=== PATIENT | female | born 1975 ===

== ENCOUNTER 2016-10-06 20:27 | Emergency (ER) | payer SELFPAY ==
[2016-10-06 20:27] VITALS: BMI 39.1
[2016-10-06 20:34] VITALS: RESP 16
[2016-10-06 20:53] VITALS: BP 152/81; PULSE 74; TEMP 97.9; O2SAT 100
--- NOTE | 2016-10-06 21:20 | ED PDOC ---
HPI: Chest Pain Time Seen by Provider: 10/06/16 21:04 Chief Complaint (Nursing): Chest Pain Chief Complaint (Provider): Chest Pain History Per: Patient History/Exam Limitations: no limitations Onset/Duration Of Symptoms: Hrs (12x) Current Symptoms Are (Timing): Still Present Severity: Moderate Quality: Sharp (left side) Exacerbating Factors: Other (worsens with inspiration) Additional Complaint(s): 41 year old female with a pertinent medical history of fibroid uterus presents to the ED with complaints of left sided chest pain which radiates to her back that started today 12x hours prior to arrival to the ED. She reports that it worsens with inspiration. She denies having a cough, shortness of breath, nausea and vomiting. PMD: Saritha Pal MD Past Medical History Reviewed: Historical Data, Nursing Documentation, Vital Signs Vital Signs: Last Vital Signs Temp 97.9 F 10/06/16 20:31 Pulse 74 10/06/16 20:31 Resp 16 10/06/16 20:31 BP 152/81 H 10/06/16 20:31 Pulse Ox 100 10/06/16 21:35 - Medical History PMH: Anemia, HTN - Surgical History Surgical History: - Family History Family History: States: Unknown Family Hx - Social History Alcohol: None Drugs: Denies - Immunization History Hx Tetanus Toxoid Vaccination: No Hx Influenza Vaccination: No Hx Pneumococcal Vaccination: No - Home Medications Home Medications: Ambulatory Orders Medication Instructions Recorded Naproxen [Naprosyn] 500 mg PO Q12H #20 tab 10/06/16 hydroCHLOROthiazide [Microzide] 1 tab PO DAILY 10/06/16 - Allergies Allergies/Adverse Reactions: Allergies Allergy/AdvReac Type Severity Reaction Status Date / Time Penicillins Allergy RASH Verified 06/14/16 15:06 Review of Systems ROS Statement: Except As Marked, All Systems Reviewed And Found Negative Cardiovascular: Positive for: Chest Pain (sharp, left side, radiates to her back ) Respiratory: Negative for: Cough, Shortness of Breath Gastrointestinal: Negative for: Nausea, Vomiting Musculoskeletal: Positive for: Back Pain Physical Exam - Reviewed Nursing Documentation Reviewed: Yes Vital Signs Reviewed: Yes - Physical Exam Appears: Positive for: Well, Non-toxic, No Acute Distress Head Exam: Positive for: ATRAUMATIC, NORMOCEPHALIC Skin: Positive for: Normal Color, Warm, Dry Cardiovascular/Chest: Positive for: Regular Rate, Rhythm, Chest Non Tender Respiratory: Positive for: Normal Breath Sounds. Negative for: Respiratory Distress Gastrointestinal/Abdominal: Positive for: Normal Exam, Soft. Negative for: Tenderness Extremity: Positive for: Normal ROM. Negative for: Calf Tenderness, Swelling Neurologic/Psych: Positive for: Alert, Oriented (3x) - Laboratory Results Result Diagrams: 10/06/16 21:45 10/06/16 21:45 - ECG O2 Sat by Pulse Oximetry: 100 (RA) Pulse Ox Interpretation: Normal Medical Decision Making Medical Decision Makin:04 Initial impression: left sided sharp chest pain Initial plan: * XRay chest 2 views * EKG * CBC with differential * CMP * troponin I * udip * reevaluation Scribe Attestation: Documented by Magaly Alonso, acting as a scribe for Carlos Rossi MD. Provider Scribe Attestation: All medical record entries made by the Scribe were at my direction and personally dictated by me. I have reviewed the chart and agree that the record accurately reflects my personal performance of the history, physical exam, medical decision making, and the department course for this patient. I have also personally directed, reviewed, and agree with the discharge instructions and disposition. Disposition - Clinical Impression Clinical Impression: Chest pain, Back pain, Pleuritic chest pain - Patient ED Disposition Is Patient to be Admitted: No Counseled Patient/Family Regarding: Studies Performed, Diagnosis, Need For Followup, Rx Given - Disposition Disposition: Routine/Home Disposition Time: 22:41 Condition: FAIR Prescriptions: Naproxen [Naprosyn] 500 mg PO Q12H #20 tab Instructions: Chest Pain (DC), Pleurisy (ED) Print Language: TELUGU
[2016-10-06 21:50] LABS: BASO # 0.3 K/uL (0.0-0.2); EOS # 0.9 K/uL (0.0-0.7); EOS % 6.4 % (0.0-4.0); HEMATOCRIT 37.2 % (34.0-47.0); LYMPH # 3.2 K/uL (1.0-4.3); LYMPH % 23.8 % (20.0-40.0); MEAN CORPUSCULAR HEMOGLOBIN 29.2 pg (27.0-31.0); MEAN PLATELET VOLUME 9.4 fl (7.2-11.7); MONO # 0.8 K/uL (0.0-0.8); MONO % 6.1 % (0.0-10.0); NEUT # 8.3 K/uL (1.8-7.0); NEUT % 61.7 % (50.0-75.0); NRBC % 0.1 % (0.0-0.0); RED CELL DISTRIBUTION WIDTH 13.9 % (11.5-14.5); WHITE BLOOD COUNT 13.4 K/uL (4.8-10.8)
[2016-10-06 22:01] LABS: ALKALINE PHOSPHATASE 89 U/L (38-126); ALT/SGPT 33 U/L (9-52); AST/SGOT 42 U/L (14-36); BILIRUBIN,TOTAL 0.7 mg/dl (0.2-1.3); BLOOD UREA NITROGEN 18 mg/dl (7-17); CALCIUM 8.9 mg/dL (8.4-10.2); CARBON DIOXIDE 27 mmol/L (22-30); CHLORIDE 102 mmol/L (98-107); GFR AFRICAN-AMERICAN > 60; GLUCOSE,RANDOM 101 mg/dL (65-105); SODIUM 137 mmol/l (132-148); TOTAL PROTEIN 8.5 G/DL (6.3-8.2)
[2016-10-06] MEDS ORDERED: Naproxen 500 MG TAB PO ONE (22:39)
[2016-10-06] MEDS ORDERED: Naproxen 500 MG TAB PO STA (22:42)
--- NOTE | 2016-10-07 08:27 | RAD ---
HISTORY: chest pain COMPARISON: No prior. TECHNIQUE: Chest PA and lateral FINDINGS: LUNGS: No active pulmonary disease. PLEURA: No significant pleural effusion identified. No pneumothorax apparent. CARDIOVASCULAR: Normal. OSSEOUS STRUCTURES: No significant abnormalities. VISUALIZED UPPER ABDOMEN: Normal. OTHER FINDINGS: None. IMPRESSION: No focal infiltrate or CHF. Clear lungs.
--- NOTE | 2016-10-08 09:42 | CARD ---
APPROVED REPORT EKG Measurement Heart [id number] <Conclusion> Normal sinus rhythm Normal ECG
== END 2016-10-07 00:04 | disposition home or self-care (01) ==
LOC: H.ER 20:27
DX: R07.81 Pleurodynia (principal); M54.9 Dorsalgia, unspecified; Z88.0 Allergy status to penicillin; I10 Essential (primary) hypertension

== ENCOUNTER 2017-11-05 01:38 | Emergency (ER) | payer SELFPAY ==
[2017-11-05 01:38] VITALS: BMI 39.1
[2017-11-05 01:59] VITALS: BP 178/94; PULSE 76; RESP 18; TEMP 98.7; O2SAT 100
--- NOTE | 2017-11-05 02:21 | ED PDOC ---
HPI: Abdomen Time Seen by Provider: 11/05/17 01:58 Chief Complaint (Nursing): Abdominal Pain Chief Complaint (Provider): abdominal Pain History Per: Patient History/Exam Limitations: no limitations Onset/Duration Of Symptoms: Hrs (2) Current Symptoms Are (Timing): Still Present Location Of Pain/Discomfort: RUQ Additional Complaint(s): 42 yo female with a history of hypertension, presents to the ED complaining of acute right upper quadrant abdominal pain that radiates to the mid back, onset of 2 hours ago. Patient reports of nausea and 4 episodes of intermittent pain, but denies any vomiting. Of note, patient states that she usually takes chamomile tea, which helps, but didn't help today. Past Medical History Reviewed: Historical Data, Nursing Documentation, Vital Signs Vital Signs: Last Vital Signs Temp 98.7 F 11/05/17 01:56 Pulse 76 11/05/17 01:56 Resp 18 11/05/17 01:56 BP 178/94 H 11/05/17 01:56 Pulse Ox 100 11/05/17 02:27 - Medical History PMH: Anemia, HTN - Surgical History Surgical History: - Family History Family History: States: Unknown Family Hx - Social History Current smoker - smoking cessation education provided: No Alcohol: None Drugs: Denies - Immunization History Hx Tetanus Toxoid Vaccination: No Hx Influenza Vaccination: No Hx Pneumococcal Vaccination: No - Home Medications Home Medications: Ambulatory Orders Medication Instructions Recorded Naproxen [Naprosyn] 500 mg PO Q12H #20 tab 10/06/16 hydroCHLOROthiazide [Microzide] 1 tab PO DAILY 10/06/16 Dicyclomine [Bentyl] 20 mg PO Q12 PRN #20 tab 11/05/17 Famotidine [Pepcid] 20 mg PO Q12 #14 tab 11/05/17 Ondansetron ODT [Zofran ODT] 12 mg PO Q6 PRN #16 odt 11/05/17 - Allergies Allergies/Adverse Reactions: Allergies Allergy/AdvReac Type Severity Reaction Status Date / Time Penicillins Allergy RASH Verified 06/14/16 15:06 Review of Systems ROS Statement: Except As Marked, All Systems Reviewed And Found Negative Constitutional: Negative for: Fever Gastrointestinal: Positive for: Nausea, Abdominal Pain (ruq pain that radiates to the bakc). Negative for: Vomiting Physical Exam - Reviewed Nursing Documentation Reviewed: Yes Vital Signs Reviewed: Yes - Physical Exam Appears: Positive for: Well, Non-toxic, No Acute Distress Head Exam: Positive for: ATRAUMATIC, NORMAL INSPECTION, NORMOCEPHALIC Skin: Positive for: Normal Color, Warm, DRY Eye Exam: Positive for: EOMI, Normal appearance, PERRL ENT: Positive for: Normal ENT Inspection Neck: Positive for: Normal, Painless ROM Cardiovascular/Chest: Positive for: Regular Rate, Rhythm. Negative for: Murmur Respiratory: Positive for: Normal Breath Sounds. Negative for: Respiratory Distress Gastrointestinal/Abdominal: Positive for: Soft, Tenderness (RUQ; Martinez's sign present) Back: Positive for: Normal Inspection Extremity: Positive for: Normal ROM. Negative for: Pedal Edema, Deformity Neurologic/Psych: Positive for: Alert, Oriented. Negative for: Motor/Sensory Deficits - Laboratory Results Result Diagrams: 11/05/17 03:04 11/05/17 03:04 - ECG O2 Sat by Pulse Oximetry: 100 (RA) Pulse Ox Interpretation: Normal Medical Decision Making Medical Decision Making: Time: --02:03 Impression: --42 yo female with acute biliary colic Plan: --labs --lipase --ed urine dip --urine preg --pepcid 20 mg IV --toradol 30mg IV --4mg IV --heplock insertion --urinalysis --ABD limited US Reassess --03:27 EXAM: US Abdomen Limited, Right Upper Quadrant CLINICAL HISTORY: 42 years old, female; Pain; Abdominal pain; Generalized; Additional info: Ruq pain TECHNIQUE: Real-time ultrasound of the right upper quadrant with image documentation. COMPARISON: No relevant prior studies available. FINDINGS: Liver: Fatty infiltration. No mass. No intrahepatic ductal dilatation. Gallbladder: Distended. Gallstones. No wall thickening. No pericholecystic fluid. No sonographic Martinez's sign. Common bile duct: No dilatation. No stones. Pancreas: Obscured by overlying bowel gas. Right kidney: Normal echogenicity. No hydronephrosis. IMPRESSION: 1. Gallbladder distention with cholelithiasis. 2. Incidental/non-acute findings are described above. Thank you for allowing us to participate in the care of your patient. 03:42 patient reports improvements of symptoms. labs reviewed and reveal no clinically significant abnormalities. patient is stable for discharge home. diagnosis: Cholelithiais Dr. perez has made arrangements for patient to follow up with the clinic for rapid follow up. Scribe Attestation: Documented by John Stone acting as a scribe for Leo Spring MD. Provider Attestation: All medical record entries made by the Scribe were at my direction and personally dictated by me. I have reviewed the chart and agree that the record accurately reflects my personal performance of the history, physical exam, medical decision making, and the department course for this patient. I have also personally directed, reviewed, and agree with the discharge instructions and disposition. Disposition - Clinical Impression Clinical Impression: Cholelithiasis - Patient ED Disposition Is Patient to be Admitted: No - Disposition Referrals: [facility] [Outside] Disposition Time: 03:42 Condition: STABLE Prescriptions: Dicyclomine [Bentyl] 20 mg PO Q12 PRN #20 tab PRN Reason: abdominal pain Famotidine [Pepcid] 20 mg PO Q12 #14 tab Ondansetron ODT [Zofran ODT] 12 mg PO Q6 PRN #16 odt PRN Reason: Nausea/Vomiting Instructions: Gallstones Forms: [facility] (Sami) Print Language: ARABIC
[2017-11-05 03:20] LABS: BASO # 0.2 K/uL (0.0-0.2); BASO % 1.4 % (0.0-2.0); EOS # 0.6 K/uL (0.0-0.7); EOS % 5.6 % (0.0-4.0); LYMPH # 2.2 K/uL (1.0-4.3); LYMPH % 19.8 % (20.0-40.0); MEAN CELL VOLUME 85.8 fl (81.0-99.0); MEAN CORPUSCULAR HEMOGLOBIN 28.6 pg (27.0-31.0); MEAN CORPUSCULAR HGB CONC 33.3 g/dL (33.0-37.0); MEAN PLATELET VOLUME 9.2 fl (7.2-11.7); MONO # 0.9 K/uL (0.0-0.8); MONO % 7.8 % (0.0-10.0); NEUT # 7.4 K/uL (1.8-7.0); NEUT % 65.4 % (50.0-75.0); NRBC % 0.1 % (0.0-0.0); RBC 4.18 Mil/uL (3.80-5.20); RED CELL DISTRIBUTION WIDTH 13.7 % (11.5-14.5); WHITE BLOOD COUNT 11.3 K/uL (4.8-10.8)
[2017-11-05 03:27] LABS: ALB/GLOB RATIO 1.1 (1.0-2.1); ALBUMIN 3.9 g/dL (3.5-5.0); ALT/SGPT 36 U/L (9-52); AST/SGOT 20 U/L (14-36); BLOOD UREA NITROGEN 12 mg/dl (7-17); GFR AFRICAN-AMERICAN > 60; GFR NON-AFRICAN AMERICAN > 60; LIPASE 67 U/L (23-300)
--- NOTE | 2017-11-05 03:27 | US ---
EXAM: US Abdomen Limited, Right Upper Quadrant CLINICAL HISTORY: 42 years old, female; Pain; Abdominal pain; Generalized; Additional info: Ruq pain TECHNIQUE: Real-time ultrasound of the right upper quadrant with image documentation. COMPARISON: No relevant prior studies available. FINDINGS: Liver: Fatty infiltration. No mass. No intrahepatic ductal dilatation. Gallbladder: Distended. Gallstones. No wall thickening. No pericholecystic fluid. No sonographic Martinez's sign. Common bile duct: No dilatation. No stones. Pancreas: Obscured by overlying bowel gas. Right kidney: Normal echogenicity. No hydronephrosis. IMPRESSION: 1. Gallbladder distention with cholelithiasis. 2. Incidental/non-acute findings are described above.
[2017-11-05 03:31] LABS: SQUAMOUS EPITHIAL < 1 /hpf (0-5); URINE BACTERIA FEW (<OCC); URINE BILIRUBIN NEGATIVE (NEGATIVE); URINE BLOOD SMALL (NEGATIVE); URINE CLARITY CLEAR (Clear); URINE COLOR COLORLESS (YELLOW); URINE GLUCOSE (UA) NEG (Normal); URINE LEUKOCYTE ESTERASE NEG Leu/uL (Negative); URINE PROTEIN NEGATIVE (NEGATIVE); URINE UROBILINOGEN 0.2-1.0 mg/dL (0.2-1.0)
== END 2017-11-05 04:04 | disposition home or self-care (01) ==
LOC: H.ER 01:38
DX: K80.70 Calculus of gallbladder and bile duct without cholecystitis without obstruction (principal); I10 Essential (primary) hypertension; Z88.0 Allergy status to penicillin
CPT/HCPCS: 76705; 80053; 81003; 83690; 85025; 96374; 96375; 99283; J1885; J2405

== ENCOUNTER 2017-11-13 19:02 | Inpatient (IN) | payer SELFPAY ==
[2017-11-13 19:02] VITALS: BMI 39.1
[2017-11-13] MEDS ORDERED: Sodium Chloride 0.9% 1,000 ML IV STA (20:00)
--- NOTE | 2017-11-13 20:03 | ED PDOC ---
HPI: Abdomen Time Seen by Provider: 11/13/17 19:50 Chief Complaint (Nursing): Abdominal Pain Chief Complaint (Provider): Abdominal pain History Per: Patient, Family History/Exam Limitations: no limitations Onset/Duration Of Symptoms: Days (1) Additional Complaint(s): Pt reports abdominal pain X 1 day, associated with nausea and 2 episodes of nonbloody vomiting. Denies fever, constipation, diarrhea, urinary symptoms. Pt evaluated in ED on 11/05/17 and dx with cholelithiasis. Abnormal Vaginal Bleeding: No Past Medical History Reviewed: Nursing Documentation, Vital Signs Vital Signs: Last Vital Signs Temp 97.8 F 11/13/17 19:35 Pulse 61 11/13/17 19:35 Resp 20 11/13/17 19:35 BP 157/83 H 11/13/17 19:35 Pulse Ox 100 11/13/17 22:30 - Medical History PMH: Anemia, HTN - Surgical History Surgical History: - Family History Family History: States: Unknown Family Hx - Social History Current smoker - smoking cessation education provided: No Alcohol: None - Immunization History Hx Tetanus Toxoid Vaccination: No Hx Influenza Vaccination: No Hx Pneumococcal Vaccination: No - Home Medications Home Medications: Ambulatory Orders Medication Instructions Recorded Naproxen [Naprosyn] 500 mg PO Q12H #20 tab 10/06/16 hydroCHLOROthiazide [Microzide] 1 tab PO DAILY 10/06/16 Dicyclomine [Bentyl] 20 mg PO Q12 PRN #20 tab 11/05/17 Famotidine [Pepcid] 20 mg PO Q12 #14 tab 11/05/17 Ondansetron ODT [Zofran ODT] 12 mg PO Q6 PRN #16 odt 11/05/17 - Allergies Allergies/Adverse Reactions: Allergies Allergy/AdvReac Type Severity Reaction Status Date / Time Penicillins Allergy RASH Verified 06/14/16 15:06 Review of Systems Constitutional: Negative for: Fever, Chills Cardiovascular: Negative for: Chest Pain, Palpitations Respiratory: Negative for: Cough, Shortness of Breath Gastrointestinal: Positive for: Nausea, Vomiting, Abdominal Pain. Negative for : Diarrhea, Hematochezia, Hematemesis Genitourinary Female: Negative for: Dysuria, Hematuria Musculoskeletal: Negative for: Back Pain Skin: Negative for: Rash, Lesions Neurological: Negative for: Headache, Dizziness Physical Exam - Reviewed Nursing Documentation Reviewed: Yes Vital Signs Reviewed: Yes - Physical Exam Appears: Positive for: Well, No Acute Distress Skin: Positive for: Normal Color, Warm, Dry Eye Exam: Positive for: Normal appearance, EOMI, PERRL Cardiovascular/Chest: Positive for: Regular Rate, Rhythm Respiratory: Positive for: Normal Breath Sounds Gastrointestinal/Abdominal: Positive for: Bowel Sounds, Soft, Tenderness (RUQ), Guarding (+ Martinez's sign). Negative for: Distended, Rebound Back: Positive for: Normal Inspection. Negative for: L CVA Tenderness, R CVA Tenderness Neurologic/Psych: Positive for: Alert, Oriented - Laboratory Results Result Diagrams: 11/13/17 20:51 11/13/17 20:51 - ECG O2 Sat by Pulse Oximetry: 100 Pulse Ox Interpretation: Normal - Physician Consult Information Time Consulting Physican Contacted: 22:30 Physician Contacted: Ramsey Carrington Outcome Of Conversation: NPO, Abx, admit. Medical Decision Making Medical Decision Makin yo female with RUQ pain. - labs - EKG - RUQ ultrasound - Morphine - IVF - Zofran 2211 Abdomen US FINDINGS: Gallbladder: Contains multiple small gallstones, which were reportedly mobile on real time. Tiny amount of pericholecystic fluid. Mild gallbladder wall thickening, with the wall measuring 5 mm (normal less than 3 mm). Reportedly positive sonographic Martinez's sign. Common bile duct: Does not appear abnormally dilated, measuring less than 6 mm in diameter. Liver: Demonstrates diffusely increased parenchymal echogenicity, most compatible with fatty infiltration. Otherwise unremarkable in appearance. Normal in size, measuring 15.6 cm in length. Normal flow seen in the main portal vein on color and Doppler imaging. Pancreas: Imaged portions appear unremarkable. Tail is obscured by bowel gas. Right kidney: Measures 10.4 cm in length. No evidence of hydronephrosis. IMPRESSION: FINDINGS SUSPICIOUS FOR EARLY ACUTE CHOLECYSTITIS. Gallstones, associated with a tiny amount of pericholecystic fluid, mild gallbladder wall thickening, and a positive sonographic Martinez's sign. Recommend clinical correlation. See above for remaining findings. Dictated By: Reshma Clark MD Dictated Date/Time: 11/13/172211 Signed By: Reshma Clark MD Date Signed: 2211 Transcribed By: BALAJI Transcribe Date/Time : 11/13/172211 [id number] Disposition - Clinical Impression Clinical Impression: Acute cholecystitis - Patient ED Disposition Is Patient to be Admitted: Yes - Disposition Disposition Time: 22:36 Condition: STABLE Forms: [facility] (Martiniquais) - Pt Status Changed To: Hospital Disposition Of: Inpatient - Admit Certification Admit to Inpatient:: After my assessment, the patient will require hospitalization for at least two midnights. This is because of the severity of symptoms shown, intensity of services needed, and/or the medical risk in this patient being treated as an outpatient. - POA Present On Arrival: None
[2017-11-13 20:57] LABS: BASO # 0.1 K/uL (0.0-0.2); BASO % 0.7 % (0.0-2.0); EOS # 0.1 K/uL (0.0-0.7); EOS % 0.9 % (0.0-4.0); HEMOGLOBIN 11.2 g/dL (12.0-16.0); LYMPH # 0.8 K/uL (1.0-4.3); LYMPH % 6.3 % (20.0-40.0); MEAN CELL VOLUME 86.5 fl (81.0-99.0); MEAN CORPUSCULAR HEMOGLOBIN 28.7 pg (27.0-31.0); MEAN CORPUSCULAR HGB CONC 33.2 g/dL (33.0-37.0); MEAN PLATELET VOLUME 9.3 fl (7.2-11.7); MONO # 0.5 K/uL (0.0-0.8); MONO % 4.2 % (0.0-10.0); NEUT # 10.4 K/uL (1.8-7.0); NEUT % 87.9 % (50.0-75.0); PLATELET COUNT 292 K/uL (130-400); RBC 3.88 Mil/uL (3.80-5.20); RED CELL DISTRIBUTION WIDTH 13.7 % (11.5-14.5); WHITE BLOOD COUNT 11.9 K/uL (4.8-10.8)
[2017-11-13 21:12] LABS: INR 1.1 (0.9-1.2)
[2017-11-13 21:14] LABS: URINE BACTERIA RARE (<OCC); URINE BILIRUBIN NEGATIVE (NEGATIVE); URINE BLOOD LARGE (NEGATIVE); URINE CLARITY CLOUDY (Clear); URINE COLOR YELLOW (YELLOW); URINE GLUCOSE (UA) NEG (Normal); URINE LEUKOCYTE ESTERASE NEG Leu/uL (Negative); URINE PROTEIN 30 mg/dL (NEGATIVE); URINE UROBILINOGEN 0.2-1.0 mg/dL (0.2-1.0)
[2017-11-13 21:34] LABS: ALBUMIN 3.9 g/dL (3.5-5.0); ALT/SGPT 186 U/L (9-52); AST/SGOT 144 U/L (14-36); BLOOD UREA NITROGEN 8 mg/dl (7-17); CALCIUM 8.8 mg/dL (8.4-10.2); GFR AFRICAN-AMERICAN > 60; GFR NON-AFRICAN AMERICAN > 60; LIPASE 51 U/L (23-300)
--- NOTE | 2017-11-13 22:12 | US ---
EXAM: US Abdomen Limited, Right Upper Quadrant EXAM DATE/TIME: 11/13/2017 8:00 PM CLINICAL HISTORY: 42 years old, female; Pain; Abdominal pain; Epigastric; Additional info: Ruq pain TECHNIQUE: Real-time ultrasound of the right upper quadrant with image documentation. COMPARISON: Prior right upper quadrant ultrasound of 2017-11-05 02:20 FINDINGS: Gallbladder: Contains multiple small gallstones, which were reportedly mobile on real time. Tiny amount of pericholecystic fluid. Mild gallbladder wall thickening, with the wall measuring 5 mm (normal less than 3 mm). Reportedly positive sonographic Martinez's sign. Common bile duct: Does not appear abnormally dilated, measuring less than 6 mm in diameter. Liver: Demonstrates diffusely increased parenchymal echogenicity, most compatible with fatty infiltration. Otherwise unremarkable in appearance. Normal in size, measuring 15.6 cm in length. Normal flow seen in the main portal vein on color and Doppler imaging. Pancreas: Imaged portions appear unremarkable. Tail is obscured by bowel gas. Right kidney: Measures 10.4 cm in length. No evidence of hydronephrosis. IMPRESSION: FINDINGS SUSPICIOUS FOR EARLY ACUTE CHOLECYSTITIS. Gallstones, associated with a tiny amount of pericholecystic fluid, mild gallbladder wall thickening, and a positive sonographic Martinez's sign. Recommend clinical correlation. See above for remaining findings.
[2017-11-13 22:32] LABS: BANDS 3 % (0-2); BASOPHIL 1 % (0-2); LYMPHOCYTE 7 % (20-50); MONOCYTE 2 % (0-10); NEUTROPHIL 87 % (42-75); PLATELET ESTIMATE NORMAL (NORMAL); TOTAL CELLS COUNTED 100
[2017-11-13 22:33] LABS: ANISOCYTOSIS SLIGHT; HYPOCHROMIC SLIGHT; OVALOCYTES SLIGHT; POIKILOCYTOSIS SLIGHT; TARGET CELLS SLIGHT
[2017-11-13] MEDS ORDERED: levoFLOXacin 750 mg in D5W 750 MG/150 ML BAG IVPB STA ×2 (22:34→23:10)
[2017-11-13] MEDS ORDERED: levoFLOXacin 750 mg in D5W 150 ML BAG IVPB STA (22:55)
[2017-11-13] MEDS ORDERED: levoFLOXacin 750 mg in D5W 750 MG/150 ML BAG IVPB ONE (23:09)
[2017-11-13] MEDS ORDERED: HYDROmorphone 0.5 mg/0.5 ml ISec IVP PRN (23:30)
--- NOTE | 2017-11-14 | CP.PCM.HP ---
History of Present Illness - History of Present Illness History of Present Illness: 42 yo ,f, PMhx/o HTN, Asthma, Obesity, Cholelithiasis presents to ED c/o RUQ abdominal pain started today in the afternoon 4 pm, no postprandial, intermittent, burning, 10/10 intensity , radiated to the back, associated with 2 non- bloddy vomiting. She denies fever, chest pain, SOB, diarrhea, dysuria. Reports menses now. Reports had similar symptoms 8 days ago, evaluated in Ed and had appt for our clinic 11/22/17. On evaluation patient reports pain has subsided with medications, hemodynamically stable. PMD: [facility]. Dr Reynoso last visit 09/26/17 PMHx: HTN, Asthma, Obesity, Cholelithiasis Allergies: Penicillin .rash reaction Meds: Lisinopril 20 mg , albuterol prn PSurghx: C section x1 OBhx: LMP: 11/11/17. Current on menses PFHx: Mother HTN PShx: +ETOH social, denies rect drugs, cig ED Course VS: normal except BP: 157/83 PE: RUQ TD, Martinez + Labs: CBC: 11.9>11.2<292 CMP: AST/ALT 144/186 Imaging: Abd US: Gallbladder: Contains multiple small gallstones, which were reportedly mobile on real time. Tiny amount of pericholecystic fluid. Mild gallbladder wall thickening, with the wall measuring 5 mm (normal less than 3 mm). Reportedly positive sonographic Martinez's sign. FINDINGS SUSPICIOUS FOR EARLY ACUTE CHOLECYSTITIS. EKG: NSR.HR:66 CXR: pending to be done Meds: NS 1l, zofran, morphine 2mg iv, levaquin 750 mg IV Case discussed with Dr Carrington: recommends patient NPO, Abx Present on Admission - Present on Admission Any Indicators Present on Admission: No History of DVT/PE: No History of Uncontrolled Diabetes: No Urinary Catheter: No Decubitus Ulcer Present: No Review of Systems - Review of Systems All systems: reviewed and no additional remarkable complaints except - Cardiovascular Cardiovascular: As Per HPI - Respiratory Respiratory: As Per HPI - Gastrointestinal Gastrointestinal: Abdominal Pain, Nausea, Vomiting Past Patient History - Past Social History Alcohol: None - CARDIAC Hx Cardiac Disorders: Yes (HTN) - PULMONARY Hx Asthma: Yes - HEMATOLOGICAL/ONCOLOGICAL Hx Anemia: Yes - MUSCULOSKELETAL/RHEUMATOLOGICAL Hx Back Pain: Yes - PSYCHIATRIC Hx Substance Use: No - SURGICAL HISTORY Hx Section: Yes (x1) - ANESTHESIA Hx Anesthesia: Yes Hx Anesthesia Reactions: No Meds Allergies/Adverse Reactions: Allergies Allergy/AdvReac Type Severity Reaction Status Date / Time Penicillins Allergy RASH Verified 06/14/16 15:06 Physical Exam - Constitutional Appears: Non-toxic, No Acute Distress - Head Exam Head Exam: ATRAUMATIC, NORMOCEPHALIC - Eye Exam Eye Exam: Normal appearance - ENT Exam ENT Exam: Normal Exam - Neck Exam Neck exam: Positive for: Normal Inspection - Respiratory Exam Respiratory Exam: absent: Rales, Rhonchi, Wheezes - Cardiovascular Exam Cardiovascular Exam: REGULAR RHYTHM, +S1, +S2 - GI/Abdominal Exam GI & Abdominal Exam: Normal Bowel Sounds, Rebound, Soft, Tenderness. absent: Guarding Additional comments: RUQ tenderness. + Martinez - Extremities Exam Extremities exam: Positive for: normal capillary refill, normal inspection. Negative for: pedal edema - Neurological Exam Neurological exam: Alert, Oriented x3 - Psychiatric Exam Psychiatric exam: Normal Affect, Normal Mood - Skin Skin Exam: Intact Results - Vital Signs Recent Vital Signs: Last Vital Signs Temp 98.3 F 11/14/17 00:00 Pulse 72 11/14/17 00:00 Resp 17 11/14/17 00:00 BP 139/89 11/14/17 00:00 Pulse Ox 100 11/14/17 00:00 - Labs Result Diagrams: 11/13/17 20:51 11/13/17 20:51 Labs: Laboratory Results - last 24 hr 11/13/17 11/13/17 11/13/17 20:47 20:51 20:51 WBC 11.9 H RBC 3.88 Hgb 11.2 L Hct 33.6 L MCV 86.5 MCH 28.7 MCHC 33.2 RDW 13.7 Plt Count 292 MPV 9.3 Neut % (Auto) 87.9 H Lymph % (Auto) 6.3 L [place] % (Auto) 4.2 Eos % (Auto) 0.9 Baso % (Auto) 0.7 Neut # (Auto) 10.4 H Lymph # (Auto) 0.8 L [place] # (Auto) 0.5 Eos # (Auto) 0.1 Baso # (Auto) 0.1 Neutrophils % (Manual) 87 H Band Neutrophils % 3 H Lymphocytes % (Manual) 7 L Monocytes % (Manual) 2 Basophils % (Manual) 1 Platelet Estimate Normal Hypochromasia (manual) Slight Poikilocytosis (manual Slight Anisocytosis (manual) Slight Target Cells Slight Ovalocytes Slight PT INR APTT Sodium 141 Potassium 3.6 Chloride 101 Carbon Dioxide 28 Anion Gap 16 BUN 8 Creatinine 0.5 L Est GFR ( Amer) > 60 Est GFR (Non-Af Amer) > 60 Random Glucose 130 H Calcium 8.8 Total Bilirubin 0.9 AST 144 H D ALT 186 H D Alkaline Phosphatase 105 Total Protein 7.6 Albumin 3.9 Globulin 3.7 Albumin/Globulin Ratio 1.0 Lipase 51 Urine Color Yellow Urine Clarity Cloudy Urine pH 6.0 Ur Specific [place] 1.014 Urine Protein 30 Urine Glucose (UA) Neg Urine Ketones Negative Urine Blood Large Urine Nitrate Negative Urine Bilirubin Negative Urine Urobilinogen 0.2-1.0 Ur Leukocyte Esterase Neg Urine RBC (Auto) 1826 H Urine Microscopic WBC 1 Urine Bacteria Rare 11/13/17 20:51 WBC RBC Hgb Hct MCV MCH MCHC RDW Plt Count MPV Neut % (Auto) Lymph % (Auto) [place] % (Auto) Eos % (Auto) Baso % (Auto) Neut # (Auto) Lymph # (Auto) [place] # (Auto) Eos # (Auto) Baso # (Auto) Neutrophils % (Manual) Band Neutrophils % Lymphocytes % (Manual) Monocytes % (Manual) Basophils % (Manual) Platelet Estimate Hypochromasia (manual) Poikilocytosis (manual Anisocytosis (manual) Target Cells Ovalocytes PT 12.0 INR 1.1 APTT 29.0 Sodium Potassium Chloride Carbon Dioxide Anion Gap BUN Creatinine Est GFR ( Amer) Est GFR (Non-Af Amer) Random Glucose Calcium Total Bilirubin AST ALT Alkaline Phosphatase Total Protein Albumin Globulin Albumin/Globulin Ratio Lipase Urine Color Urine Clarity Urine pH Ur Specific [place] Urine Protein Urine Glucose (UA) Urine Ketones Urine Blood Urine Nitrate Urine Bilirubin Urine Urobilinogen Ur Leukocyte Esterase Urine RBC (Auto) Urine Microscopic WBC Urine Bacteria Assessment & Plan - Assessment and Plan (Free Text) Plan: 42 yo ,f, PMhx/o HTN, Asthma, Obesity, Cholelithiasis admitted for Acute cholecystitis 1) Acute cholecystitis -martinez positive Abd US: Gallbladder: Contains multiple small gallstones, which were reportedly mobile on real time. Tiny amount of pericholecystic fluid. Mild gallbladder wall thickening, with the wall measuring 5 mm (normal less than 3 mm). Reportedly positive sonographic Martinez's sign. FINDINGS SUSPICIOUS FOR EARLY ACUTE CHOLECYSTITIS. -reactive transaminitis, lipase normal -NPO -s/p fluids, morphine, abx ED -IV fluids NS 130 ml/h -pain control morphine PRN -zofran PRN nausea/vomiting -Levaquin 750 mg IV qday -D/w Surgery Dr Carrington: Keep patient NPO and Abx Levofloxacin -f/u CBC, CMP 2) Transaminitis -reactive secondary to Acute cholecystitis -AST/ALT 144/186 -f/u CMP 3) HTN -controlled -c/w home meds -Lisinopril 4) Asthma -Controlled -c/w home medication 5) DVT Prophylaxis -SCD. Possible surgery
[2017-11-14] MEDS: Sodium Chloride 0.9% 1,000 ML IV SCH ×3 (01:02→23:45)
--- NOTE | 2017-11-14 01:58 | CP.PCM.CON ---
<Sam Randle - Last Filed: 11/14/17 02:16> History of Present Illness - History of Present Illness History of Present Illness: Surgery Consult note. Dr. Carrington 42yo F with PMHx of HTN, Anemia here for evaluation of RUQ abdominal pain. She states that the pain started at around 4PM yesterday. Denies any association with food intake. Pain is located in the right upper quadrant and epigastric location, radiates to the right mid back. Describes pain as sharp. Does report similar pain 8 days ago when she was diagnosed with cholelithiasis and scheduled for out-patient follow-up. She states that she was given a prescription for dicyclomine with moderate improvement in pain. However, today, the pain returned and described as severe. Denies Fevers or chills. No Chest pain. No shortness of breath. Does report nausea with 2 episodes of non bilious , non bloody emesis. No diarrhea. Denies sick contacts. Denies current . PMHx: HTN, Anemia, L ovarian cyst PSHx: x1. Uterine Fibroid removal Family Hx: Mother - HTN Social Hx: Denies tobacco use. Social ETOH use. Denies illicit drugs Allergy: PCN - rash Review of Systems - Constitutional Constitutional: absent: Chills, Fever - Cardiovascular Cardiovascular: absent: Chest Pain, Diaphoresis, Dyspnea - Respiratory Respiratory: absent: Dyspnea - Gastrointestinal Gastrointestinal: Abdominal Pain, Nausea, Vomiting. absent: Diarrhea, Hematemesis, Hematochezia, Melena - Genitourinary Genitourinary: absent: Difficulty Urinating, Dysuria Past Patient History - Past Medical History & Family History Past Medical History?: Yes Past Family History: Reviewed and not pertinent - Past Social History Smoking Status: Never Smoked Alcohol: Social Drugs: Denies - CARDIAC Hx Cardiac Disorders: Yes (HTN) - PULMONARY Hx Asthma: Yes - HEMATOLOGICAL/ONCOLOGICAL Hx Anemia: Yes - MUSCULOSKELETAL/RHEUMATOLOGICAL Hx Back Pain: Yes - PSYCHIATRIC Hx Substance Use: No - SURGICAL HISTORY Hx Section: Yes (x1) - ANESTHESIA Hx Anesthesia: Yes Hx Anesthesia Reactions: No Meds Allergies/Adverse Reactions: Allergies Allergy/AdvReac Type Severity Reaction Status Date / Time Penicillins Allergy RASH Verified 06/14/16 15:06 - Medications Medications: Current Medications Acetaminophen (Tylenol 325mg Tab) 650 mg PO Q6 PRN PRN Reason: Fever >100.4 F Hydromorphone HCl (Dilaudid) 0.5 mg IVP Q6 PRN PRN Reason: Pain, severe (8-10) Levofloxacin/Dextrose (Levaquin 750mg) 750 mg in 150 mls @ 100 mls/hr IVPB DAILY@2330 CHICA PRN Reason: Protocol Sodium Chloride (Sodium Chloride 0.9%) 1,000 mls @ 130 mls/hr IV .Q7H42M [facility] Stop: 11/15/17 00:39 Last Admin: 11/14/17 01:02 Dose: 130 mls/hr Lisinopril (Zestril) 20 mg PO DAILY [facility] [place] Morphine Sulfate (Morphine) 2 mg IVP Q4 PRN PRN Reason: Pain, moderate (4-7) Ondansetron HCl (Zofran Inj) 4 mg IVP Q6 PRN PRN Reason: Nausea/Vomiting Physical Exam - Constitutional Appears: Well, Non-toxic, No Acute Distress - Head Exam Head Exam: ATRAUMATIC, NORMAL INSPECTION, NORMOCEPHALIC - Eye Exam Eye Exam: EOMI, Normal appearance. absent: Scleral icterus - ENT Exam ENT Exam: Mucous Membranes Moist - Respiratory Exam Respiratory Exam: NORMAL BREATHING PATTERN. absent: Accessory Muscle Use, Respiratory Distress - Cardiovascular Exam Cardiovascular Exam: RRR. absent: JVD - GI/Abdominal Exam GI & Abdominal Exam: Soft. absent: Distended, Firm, Guarding, Rebound, Rigid Additional comments: Tenderness to palpation right upper quadrant +Martinez's sign Low transverse surgical scar noted, well healed - Extremities Exam Extremities exam: Positive for: normal inspection. Negative for: calf tenderness - Neurological Exam Neurological exam: Alert, Normal Gait, Oriented x3 - Psychiatric Exam Psychiatric exam: Normal Affect, Normal Mood - Skin Skin Exam: Dry, Intact, Normal Color, Warm Results - Vital Signs Recent Vital Signs: Last Vital Signs Temp 98.3 F 11/14/17 00:00 Pulse 72 11/14/17 00:00 Resp 17 11/14/17 00:00 BP 139/89 11/14/17 00:00 Pulse Ox 100 11/14/17 00:00 - Labs Result Diagrams: 11/13/17 20:51 11/13/17 20:51 Labs: Laboratory Results - last 24 hr 11/13/17 11/13/1718 20:47 20:51 20:51 WBC 11.9 H RBC 3.88 Hgb 11.2 L Hct 33.6 L MCV 86.5 MCH 28.7 MCHC 33.2 RDW 13.7 Plt Count 292 MPV 9.3 Neut % (Auto) 87.9 H Lymph % (Auto) 6.3 L [place] % (Auto) 4.2 Eos % (Auto) 0.9 Baso % (Auto) 0.7 Neut # (Auto) 10.4 H Lymph # (Auto) 0.8 L [place] # (Auto) 0.5 Eos # (Auto) 0.1 Baso # (Auto) 0.1 Neutrophils % (Manual) 87 H Band Neutrophils % 3 H Lymphocytes % (Manual) 7 L Monocytes % (Manual) 2 Basophils % (Manual) 1 Platelet Estimate Normal Hypochromasia (manual) Slight Poikilocytosis (manual Slight Anisocytosis (manual) Slight Target Cells Slight Ovalocytes Slight PT INR APTT Sodium 141 Potassium 3.6 Chloride 101 Carbon Dioxide 28 Anion Gap 16 BUN 8 Creatinine 0.5 L Est GFR ( Amer) > 60 Est GFR (Non-Af Amer) > 60 Random Glucose 130 H Calcium 8.8 Total Bilirubin 0.9 AST 144 H D ALT 186 H D Alkaline Phosphatase 105 Total Protein 7.6 Albumin 3.9 Globulin 3.7 Albumin/Globulin Ratio 1.0 Lipase 51 Urine Color Yellow Urine Clarity Cloudy Urine pH 6.0 Ur Specific [place] 1.014 Urine Protein 30 Urine Glucose (UA) Neg Urine Ketones Negative Urine Blood Large Urine Nitrate Negative Urine Bilirubin Negative Urine Urobilinogen 0.2-1.0 Ur Leukocyte Esterase Neg Urine RBC (Auto) 1826 H Urine Microscopic WBC 1 Urine Bacteria Rare 11/13/17 20:51 WBC RBC Hgb Hct MCV MCH MCHC RDW Plt Count MPV Neut % (Auto) Lymph % (Auto) [place] % (Auto) Eos % (Auto) Baso % (Auto) Neut # (Auto) Lymph # (Auto) [place] # (Auto) Eos # (Auto) Baso # (Auto) Neutrophils % (Manual) Band Neutrophils % Lymphocytes % (Manual) Monocytes % (Manual) Basophils % (Manual) Platelet Estimate Hypochromasia (manual) Poikilocytosis (manual Anisocytosis (manual) Target Cells Ovalocytes PT 12.0 INR 1.1 APTT 29.0 Sodium Potassium Chloride Carbon Dioxide Anion Gap BUN Creatinine Est GFR ( Amer) Est GFR (Non-Af Amer) Random Glucose Calcium Total Bilirubin AST ALT Alkaline Phosphatase Total Protein Albumin Globulin Albumin/Globulin Ratio Lipase Urine Color Urine Clarity Urine pH Ur Specific [place] Urine Protein Urine Glucose (UA) Urine Ketones Urine Blood Urine Nitrate Urine Bilirubin Urine Urobilinogen Ur Leukocyte Esterase Urine RBC (Auto) Urine Microscopic WBC Urine Bacteria Assessment & Plan - Assessment and Plan (Free Text) Assessment: 42yo F with acute calculous cholecystitis - Abd US noted - Leukocytosis. Afebrile. VSS Plan: - NPO except meds - IVF - IV levofloxacin - Anti-emetics - pain management - MRCP to r/o choledocholithiasis - f/u AM labs - Will schedule for OR following the results of MRCP Further recs as per Dr. Zeb Randle PGY1 surgery pager: [phone] <Jozef Yanes - Last Filed: 11/14/17 10:17> History of Present Illness - History of Present Illness History of Present Illness: Patient was seen and examined at the bedside. Agree with resident's note above. Meds - Medications Medications: Current Medications Acetaminophen (Tylenol 325mg Tab) 650 mg PO Q6 PRN PRN Reason: Fever >100.4 F Hydromorphone HCl (Dilaudid) 0.5 mg IVP Q6 PRN PRN Reason: Pain, severe (8-10) Levofloxacin/Dextrose (Levaquin 750mg) 750 mg in 150 mls @ 100 mls/hr IVPB DAILY@2330 CHICA PRN Reason: Protocol Sodium Chloride (Sodium Chloride 0.9%) 1,000 mls @ 130 mls/hr IV .Q7H42M [facility] Stop: 11/15/17 00:39 Last Admin: 11/14/17 01:02 Dose: 130 mls/hr Potassium Chloride (Potassium Chloride 20 Meq/100 Ml) 100 mls @ 50 mls/hr IVPB ONCE ONE Stop: 11/14/17 11:42 Lisinopril (Zestril) 20 mg PO DAILY [facility] [place] Morphine Sulfate (Morphine) 2 mg IVP Q4 PRN PRN Reason: Pain, moderate (4-7) Ondansetron HCl (Zofran Inj) 4 mg IVP Q6 PRN PRN Reason: Nausea/Vomiting Physical Exam - GI/Abdominal Exam Additional comments: soft, mildly tender in the RUQ, ND, BS+, no rebound, no guarding, negative Martinez's sign, obese, well healed scar from prior Results - Vital Signs Recent Vital Signs: Last Vital Signs Temp 98.1 F 11/14/17 08:02 Pulse 55 L 11/14/17 08:02 Resp 20 11/14/17 08:02 BP 137/83 11/14/17 08:02 Pulse Ox 100 11/14/17 08:02 - Labs Result Diagrams: 11/14/17 05:25 11/14/17 05:25 Labs: Laboratory Results - last 24 hr 11/13/17 11/13/17 11/13/17 20:47 20:51 20:51 WBC 11.9 H RBC 3.88 Hgb 11.2 L Hct 33.6 L MCV 86.5 MCH 28.7 MCHC 33.2 RDW 13.7 Plt Count 292 MPV 9.3 Neut % (Auto) 87.9 H Lymph % (Auto) 6.3 L [place] % (Auto) 4.2 Eos % (Auto) 0.9 Baso % (Auto) 0.7 Neut # (Auto) 10.4 H Lymph # (Auto) 0.8 L [place] # (Auto) 0.5 Eos # (Auto) 0.1 Baso # (Auto) 0.1 Neutrophils % (Manual) 87 H Band Neutrophils % 3 H Lymphocytes % (Manual) 7 L Monocytes % (Manual) 2 Basophils % (Manual) 1 Platelet Estimate Normal Hypochromasia (manual) Slight Poikilocytosis (manual Slight Anisocytosis (manual) Slight Target Cells Slight Ovalocytes Slight PT INR APTT Sodium 141 Potassium 3.6 Chloride 101 Carbon Dioxide 28 Anion Gap 16 BUN 8 Creatinine 0.5 L Est GFR ( Amer) > 60 Est GFR (Non-Af Amer) > 60 Random Glucose 130 H Calcium 8.8 Total Bilirubin 0.9 AST 144 H D ALT 186 H D Alkaline Phosphatase 105 Total Protein 7.6 Albumin 3.9 Globulin 3.7 Albumin/Globulin Ratio 1.0 Lipase 51 Urine Color Yellow Urine Clarity Cloudy Urine pH 6.0 Ur Specific [place] 1.014 Urine Protein 30 Urine Glucose (UA) Neg Urine Ketones Negative Urine Blood Large Urine Nitrate Negative Urine Bilirubin Negative Urine Urobilinogen 0.2-1.0 Ur Leukocyte Esterase Neg Urine RBC (Auto) 1826 H Urine Microscopic WBC 1 Urine Bacteria Rare 11/13/17 11/14/17 11/14/17 20:51 05:25 05:25 WBC 11.0 H RBC 3.70 L Hgb 10.7 L Hct 31.7 L MCV 85.6 MCH 28.9 MCHC 33.8 RDW 13.7 Plt Count 286 MPV 9.5 Neut % (Auto) 72.8 Lymph % (Auto) 18.8 L [place] % (Auto) 6.1 Eos % (Auto) 1.2 Baso % (Auto) 1.1 Neut # (Auto) 8.0 H Lymph # (Auto) 2.1 [place] # (Auto) 0.7 Eos # (Auto) 0.1 Baso # (Auto) 0.1 Neutrophils % (Manual) Band Neutrophils % Lymphocytes % (Manual) Monocytes % (Manual) Basophils % (Manual) Platelet Estimate Hypochromasia (manual) Poikilocytosis (manual Anisocytosis (manual) Target Cells Ovalocytes PT 12.0 INR 1.1 APTT 29.0 Sodium 142 Potassium 3.4 L Chloride 105 Carbon Dioxide 23 Anion Gap 17 BUN 7 Creatinine 0.5 L Est GFR ( Amer) > 60 Est GFR (Non-Af Amer) > 60 Random Glucose 101 Calcium 8.5 Total Bilirubin 0.8 AST 140 H ALT 224 H D Alkaline Phosphatase 97 Total Protein 7.0 Albumin 3.6 Globulin 3.4 Albumin/Globulin Ratio 1.0 Lipase Urine Color Urine Clarity Urine pH Ur Specific [place] Urine Protein Urine Glucose (UA) Urine Ketones Urine Blood Urine Nitrate Urine Bilirubin Urine Urobilinogen Ur Leukocyte Esterase Urine RBC (Auto) Urine Microscopic WBC Urine Bacteria - Imaging and Cardiology US - abdomen Status: Image reviewed by me, Report reviewed by me
[2017-11-14] MEDS ORDERED: metroNIDAZOLE 500mg/100ml NS IVPB SCH (02:15)
[2017-11-14] MEDS ORDERED: metroNIDAZOLE 500mg/100ml NS 100 ML IVPB SCH (02:30)
[2017-11-14 06:48] LABS: BASO # 0.1 K/uL (0.0-0.2); BASO % 1.1 % (0.0-2.0); EOS # 0.1 K/uL (0.0-0.7); EOS % 1.2 % (0.0-4.0); HEMOGLOBIN 10.7 g/dL (12.0-16.0); LYMPH # 2.1 K/uL (1.0-4.3); LYMPH % 18.8 % (20.0-40.0); MEAN CELL VOLUME 85.6 fl (81.0-99.0); MEAN CORPUSCULAR HEMOGLOBIN 28.9 pg (27.0-31.0); MEAN CORPUSCULAR HGB CONC 33.8 g/dL (33.0-37.0); MEAN PLATELET VOLUME 9.5 fl (7.2-11.7); MONO # 0.7 K/uL (0.0-0.8); MONO % 6.1 % (0.0-10.0); NEUT % 72.8 % (50.0-75.0); NRBC % 0.1 % (0.0-0.0); RBC 3.7 Mil/uL (3.80-5.20); RED CELL DISTRIBUTION WIDTH 13.7 % (11.5-14.5)
[2017-11-14 07:39] LABS: ALBUMIN 3.6 g/dL (3.5-5.0); ALT/SGPT 224 U/L (9-52); AST/SGOT 140 U/L (14-36); BLOOD UREA NITROGEN 7 mg/dl (7-17); CALCIUM 8.5 mg/dL (8.4-10.2); GFR AFRICAN-AMERICAN > 60; GFR NON-AFRICAN AMERICAN > 60
[2017-11-14] MEDS ORDERED: Gadodiamide 287 MG/ML VIAL (15ML) IV ONE (08:22)
[2017-11-14] MEDS ORDERED: Sodium Chloride 0.9% 100 ML ONE (08:22)
[2017-11-14] MEDS ORDERED: levoFLOXacin 750 mg in D5W 750 MG/150 ML BAG IVPB SCH ×2 (09:00→23:30)
[2017-11-14] MEDS ORDERED: Potassium Chloride 20 mEq 100 ML IVPB ONE (09:43)
--- NOTE | 2017-11-14 09:53 | CARD ---
APPROVED REPORT EKG Measurement Heart [id number] <Conclusion> Normal sinus rhythm Normal ECG
--- NOTE | 2017-11-14 09:58 | RAD ---
HISTORY: RUQ abd pain COMPARISON: 10/06/2016 TECHNIQUE: Chest PA and lateral FINDINGS: LUNGS: No active pulmonary disease. PLEURA: No significant pleural effusion identified. No pneumothorax apparent. CARDIOVASCULAR: Normal. OSSEOUS STRUCTURES: Mild thoracic spondylosis VISUALIZED UPPER ABDOMEN: Normal. OTHER FINDINGS: None. IMPRESSION: No active disease.
--- NOTE | 2017-11-14 11:44 | MRI ---
PROCEDURE: Magnetic Resonance Cholangiopancreatography HISTORY: COMPARISON: Abdominal limited ultrasound. 11/13/2017 TECHNIQUE: Multiplanar, multisequence MR images of the abdomen were obtained, including heavily T2 weighted MRCP images of the biliary system. Rotating maximum intensity projection images of the biliary system were generated. FINDINGS: MRCP: The common bile duct is of a normal caliber. No evidence of choledocholithiasis. No intrahepatic biliary ductal dilatation. LIVER: Unremarkable. GALLBLADDER: Multiple gallstones. Gallbladder wall thickening and a fairly significant amount of pericholecystic fluid present SPLEEN: Unremarkable. PANCREAS: Unremarkable. ADRENALS: Unremarkable. KIDNEYS: Unremarkable. AORTA: No aneurysm. ASCITES: None. OTHER FINDINGS: None. IMPRESSION: No dilated intra or extrahepatic bile ducts. No appreciable filling defects within the visualized normal caliber common bile duct to suggest stones. Minute sandlike debris -not excluded. Gallstones, gallbladder wall thickening and pericholecystic fluid - -findings compatible with an acute calculus cholecystitis
[2017-11-14] MEDS ORDERED: Dexamethasone 4 mg/1 ml ONE (13:13)
[2017-11-14] MEDS ORDERED: Propofol 10 mg/ml Inj (20 ML) ONE (13:13)
[2017-11-14] MEDS ORDERED: Midazolam 2 MG/2 ML VIAL ONE (13:13)
[2017-11-14] MEDS ORDERED: Lidocaine 4% (Laryng-O-Jet) Kit MM ONE (13:13)
[2017-11-14] MEDS ORDERED: Bupivacaine 0.5% Inj(30mL) ONE (13:36)
[2017-11-14] MEDS ORDERED: Lidocaine 2% Inj (20ml) ONE (13:36)
[2017-11-14] MEDS ORDERED: Neostigmine 1:1000 (1 mg/ml) Inj ONE (13:54)
[2017-11-14] MEDS ORDERED: Succinylcholine 200 mg/10 ml Inj IV ONE (13:54)
[2017-11-14] MEDS ORDERED: Rocuronium 10 mg/ml (5 ml) ONE (13:55)
[2017-11-14] MEDS ORDERED: Lactated Ringer's 1,000 ML IV ONE ×2 (14:12→15:00)
[2017-11-14] MEDS ORDERED: Lactated Ringer's 1,000 ML IV SCH ×2 (15:15)
--- NOTE | 2017-11-14 15:42 | PCM.SURG1 ---
Surgeon's Initial Post Op Note - Surgeon's Notes Surgeon: MD Farzana [employer] Machine Mechanic: Nasreen PGY2. FRED RobertY1. Pre-Operative Diagnosis: Acute cholecystitis Operative Findings: inflammed gallbladder Post-Operative Diagnosis: Acute cholecystitis Operation Performed: Laparoscopic cholecystectomy Specimen/Specimens Removed: gallbladder Estimated Blood Loss: EBL {In ML}: 5 Date of Surgery/Procedure: 11/14/17 Time of Surgery/Procedure: 15:42
[2017-11-14] MEDS ORDERED: HYDROmorphone 0.5 mg/0.5 ml ISec IVP PRN (15:47)
[2017-11-14] MEDS: metroNIDAZOLE 500mg/100ml NS 100 ML IVPB SCH (17:08)
[2017-11-14] MEDS: Ciprofloxacin 400mg/200ml D5W 400 MG/200 ML BAG IVPB SCH (21:25)
[2017-11-15] MEDS: metroNIDAZOLE 500mg/100ml NS 100 ML IVPB SCH ×2 (01:33→08:22)
[2017-11-15 05:10] VITALS: O2SAT 98
[2017-11-15] MEDS: Sodium Chloride 0.9% 1,000 ML IV SCH (05:12)
[2017-11-15 06:27] LABS: BASO % 0.3 % (0.0-2.0); HEMOGLOBIN 11.2 g/dL (12.0-16.0); LYMPH # 1.5 K/uL (1.0-4.3); LYMPH % 9.8 % (20.0-40.0); MEAN CELL VOLUME 85.9 fl (81.0-99.0); MEAN CORPUSCULAR HEMOGLOBIN 28.8 pg (27.0-31.0); MEAN CORPUSCULAR HGB CONC 33.5 g/dL (33.0-37.0); MEAN PLATELET VOLUME 9.3 fl (7.2-11.7); MONO # 0.8 K/uL (0.0-0.8); MONO % 4.8 % (0.0-10.0); NEUT # 13.3 K/uL (1.8-7.0); NEUT % 85.1 % (50.0-75.0); RBC 3.88 Mil/uL (3.80-5.20); RED CELL DISTRIBUTION WIDTH 13.8 % (11.5-14.5); WHITE BLOOD COUNT 15.7 K/uL (4.8-10.8)
--- NOTE | 2017-11-15 06:53 | CP.PCM.PN ---
<Lance Robert - Last Filed: 11/15/17 07:13> Subjective - Date & Time of Evaluation Date of Evaluation: 11/15/17 Time of Evaluation: 06:40 - Subjective Subjective: General Surgery Note for Dr. Yanes Patient seen and examined at bedside. No acute event overnight. Patient states pain is controlled, complains of mild right scapular pain. Denies nausea/ vomiting. Patient tolerating liquid diet. Will advance this morning. She is passing gas but no BM. Patinet has been afebrile. No other complaints at this time. Objective - Vital Signs/Intake and Output Vital Signs (last 24 hours): Temp Pulse Resp BP Pulse Ox 98.1 F 77 18 130/74 98 11/15/17 01:30 11/15/17 01:30 11/15/17 01:30 11/15/17 01:30 11/15/17 01:30 Intake and Output: 11/14/17 11/15/17 18:59 06:59 Intake Total 1700 Balance 1700 - Medications Medications: Current Medications Acetaminophen (Tylenol 325mg Tab) 650 mg PO Q6 PRN PRN Reason: Fever >100.4 F Enoxaparin Sodium (Lovenox) 40 mg SC DAILY CHICA PRN Reason: Protocol Ciprofloxacin (Cipro 400mg/200ml Dsw) 400 mg in 200 mls @ 200 mls/hr IVPB Q12 CHICA PRN Reason: Protocol Last Admin: 11/14/17 21:25 Dose: 200 mls/hr Metronidazole (Flagyl 500mg/100ml Ns) 100 mls @ 100 mls/hr IVPB Q8 CHICA PRN Reason: Protocol Last Admin: 11/15/17 01:33 Dose: 100 mls/hr Lisinopril (Zestril) 20 mg PO DAILY [facility] Last Admin: 11/14/17 09:00 Dose: Not Given Morphine Sulfate (Morphine) 2 mg IVP Q4 PRN PRN Reason: Pain, moderate (4-7) Morphine Sulfate (Morphine) 4 mg IVP Q4 PRN PRN Reason: Pain, moderate (4-7) Ondansetron HCl (Zofran Inj) 4 mg IVP Q6 PRN PRN Reason: Nausea/Vomiting - Labs Labs: 11/14/17 05:25 11/14/17 05:25 PT 12.0 Seconds (9.8-13.1) 11/13/17 20:51 INR 1.1 (0.9-1.2) 11/13/17 20:51 APTT 29.0 Seconds (25.6-37.1) 11/13/17 20:51 - Constitutional Appears: No Acute Distress - Head Exam Head Exam: ATRAUMATIC, NORMOCEPHALIC - Eye Exam Eye Exam: EOMI, Normal appearance Pupil Exam: PERRL - ENT Exam ENT Exam: Mucous Membranes Moist - Respiratory Exam Respiratory Exam: NORMAL BREATHING PATTERN - Cardiovascular Exam Cardiovascular Exam: REGULAR RHYTHM - GI/Abdominal Exam GI & Abdominal Exam: Soft, Normal Bowel Sounds. absent: Distended, Firm, Guarding, Rigid, Tenderness, Rebound Additional comments: surgical sites clean, dry and intact - Extremities Exam Extremities Exam: Normal Capillary Refill - Neurological Exam Neurological Exam: Alert, Awake, Oriented x3 - Psychiatric Exam Psychiatric exam: Normal Affect, Normal Mood - Skin Skin Exam: Dry, Intact, Normal Color, Warm Assessment and Plan - Assessment and Plan (Free Text) Assessment: 42 F s/p laparoscopic cholecystectomy POD#1 Plan: -Reg diet -Patient clear for discharge from surgical standpoint as long as she tolerates food this morning -Follow up as outpatient with Dr. Yanes within 1-2 weeks -No heavy lifting for a few weeks -Keep area clean and dry -Discussed with Dr. Farzana Robert PGY1 <Jozef Yanes - Last Filed: 11/15/17 10:38> Subjective - Date & Time of Evaluation Time of Evaluation: 10:05 - Subjective Subjective: Patient was seen and examined at the bedside. Agree with resident's note above. Objective - Vital Signs/Intake and Output Vital Signs (last 24 hours): Temp Pulse Resp BP Pulse Ox 98.5 F 70 20 151/94 H 98 11/15/17 07:46 11/15/17 08:23 11/15/17 07:46 11/15/17 08:23 11/15/17 07:46 - Medications Medications: Current Medications Acetaminophen (Tylenol 325mg Tab) 650 mg PO Q6 PRN PRN Reason: Fever >100.4 F Enoxaparin Sodium (Lovenox) 40 mg SC DAILY CHICA PRN Reason: Protocol Last Admin: 11/15/17 08:23 Dose: 40 mg Ciprofloxacin (Cipro 400mg/200ml Dsw) 400 mg in 200 mls @ 200 mls/hr IVPB Q12 CHICA PRN Reason: Protocol Last Admin: 11/15/17 08:22 Dose: 200 mls/hr Metronidazole (Flagyl 500mg/100ml Ns) 100 mls @ 100 mls/hr IVPB Q8 CHICA PRN Reason: Protocol Last Admin: 11/15/17 08:22 Dose: 100 mls/hr Lisinopril (Zestril) 20 mg PO DAILY [facility] Last Admin: 11/15/17 08:23 Dose: 20 mg Morphine Sulfate (Morphine) 2 mg IVP Q4 PRN PRN Reason: Pain, moderate (4-7) Morphine Sulfate (Morphine) 4 mg IVP Q4 PRN PRN Reason: Pain, moderate (4-7) Ondansetron HCl (Zofran Inj) 4 mg IVP Q6 PRN PRN Reason: Nausea/Vomiting - Labs Labs: 11/15/17 05:40 11/15/17 05:40 PT 12.0 Seconds (9.8-13.1) 11/13/17 20:51 INR 1.1 (0.9-1.2) 11/13/17 20:51 APTT 29.0 Seconds (25.6-37.1) 11/13/17 20:51 Assessment and Plan - Assessment and Plan (Free Text) Plan: - Patient is clear for discharge from the general surgery stand point - Patient will follow up with me in the office in 10 days to 2 weeks
[2017-11-15 06:59] LABS: ALBUMIN 3.7 g/dL (3.5-5.0); ALT/SGPT 194 U/L (9-52); AST/SGOT 90 U/L (14-36); BLOOD UREA NITROGEN 6 mg/dl (7-17); CALCIUM 8.7 mg/dL (8.4-10.2); GFR AFRICAN-AMERICAN > 60; GFR NON-AFRICAN AMERICAN > 60
--- NOTE | 2017-11-15 07:08 | OP ---
PROCEDURE DATE: 11/14/2017 PREOPERATIVE DIAGNOSIS: Acute cholecystitis. POSTOPERATIVE DIAGNOSIS: Acute cholecystitis. PROCEDURE: Laparoscopic cholecystectomy. SURGEON: Jozef Yanes MD PICK AND SHOVEL MAN: SECOND PICK AND SHOVEL MAN: Yesica. TYPE OF ANESTHESIA: General with endotracheal intubation. ANESTHESIOLOGIST: Lenard Putnam MD IV FLUID INTAKE: Crystalloids. ESTIMATED BLOOD LOSS: 5 mL. INTRAOPERATIVE FINDINGS: Acute cholecystitis and cholelithiasis. SPECIMENS: Gallbladder with stones. BRIEF HISTORY: Ms. Frank Danielle is a very pleasant 42-year-old female who came to the hospital complaining of right upper quadrant and epigastric abdominal pain and upon further investigation on a CT scan, the patient was found to have acute cholecystitis on ultrasound; however, the patient's liver enzymes were slightly elevated and the patient underwent MRCP showing no common bile duct dilatation or choledocholithiasis. All the risks and benefits of the procedure were explained to the patient with the patient having a full understanding of all the risks and benefits involved, informed consent was obtained, and the patient was taken to the operating room for above-stated procedure. DESCRIPTION OF PROCEDURE: The patient was brought into the operating room and placed supine on the operating room table. Bilateral Flowtron boots were applied to the patient's lower extremities. After successful induction of anesthesia and successful endotracheal intubation by the anesthesia team, the patient's abdomen was prepped with ChloraPrep stick and draped in a standard surgical fashion. Prior to the beginning of the procedure, a time-out was called in the room and everyone in the room were in agreement. Using Veress needle, the patient's abdomen was entered at the umbilicus and pneumoperitoneum was achieved with good opening pressures. Once this was accomplished using an 11 blade scalpel knife, 1-cm incision was made in the umbilicus in the longitudinal fashion and subsequent to that, a 12-mm trocar was introduced into the patient's abdomen. At this point in time, 5-mm 0-degree scope was introduced into the patient's abdomen and the abdomen was inspected. We immediately were able to visualize the gallbladder that appeared to be inflamed. Then attention was turned to the subxiphoid area. Using 11-blade scalpel knife, 5-mm incision was made in a transverse fashion and subsequent to that, 5-mm trocar was introduced into the patient's abdomen. Then attention was turned to the right side of the patient's abdomen. Using a 11 blade scalpel knife, two 5-mm incisions were made in a transverse fashion on the right side of the patient's abdomen and subsequent to that, another two 5-mm trocar was introduced into the patient's abdomen. At this point in time, the gallbladder was grasped to the fundus and Orlando's pouch using Saman and Geck graspers, and subsequent to that using [place] dissector, cystic duct and cystic artery were dissected out and critical view of safety was achieved. Once this was accomplished, cystic duct was clipped with 2 clips proximal and one distal and transected with laparoscopic scissors. Same thing was done for the cystic artery; it was clipped with 2 clips proximal and one distal, and transected with laparoscopic scissors. Upon further dissection, we encountered posterior branch of the cystic artery that was dissected out with [place] dissector and clipped with two clips proximal and one distal, and transected with laparoscopic scissors. At this point in time, gallbladder was dissected off the gallbladder fossa using hook electrocautery and once the gallbladder was completely freed up from the gallbladder fossa, endo catch bag was introduced into the patient's abdomen, gallbladder was placed inside of the bag and the bag was closed. At this point in time, the gallbladder fossa was inspected for hemostasis. Hemostasis was achieved with hook electrocautery. Subsequent to that, the patient's gallbladder fossa was irrigated and fluid was suctioned out. At this point in time, 12-mm trocar together with endo catch bag and gallbladder were removed from the patient's abdomen and passed off to the [facility] as a specimen. Fascial layer at the umbilical port site was closed with one interrupted 0-Vicryl suture and UR-5 needle. Subsequent to that, the patient's abdomen was fully desufflated; the rest of the trocars were removed from the patient's abdomen and the skin was closed with 4-0 Monocryl suture in a running subcuticular fashion. At the end of the procedure, incision sites were infiltrated with Marcaine anesthetic. The patient's abdomen was washed and dried and a Dermabond was applied to the site of the incisions. The patient was successfully extubated by the anesthesia team, transferred to the [facility], and taken to the recovery room in a stable condition. At the end of the procedure, all instrument counts, needles, and sponges were correct. Jozef Yanes MD
[2017-11-15 07:46] VITALS: BP 151/94; PULSE 70; RESP 20; TEMP 98.5
[2017-11-15] MEDS: Ciprofloxacin 400mg/200ml D5W 400 MG/200 ML BAG IVPB SCH (08:22)
[2017-11-15] MEDS ORDERED: Enoxaparin 40 mg Syringe SC SCH (09:00)
--- NOTE | 2017-11-15 09:31 | CP.PCM.DIS ---
Provider - Provider Date of Admission: 11/13/17 22:31 Attending physician: Nannette Gonzalez MD Time Spent in preparation of Discharge (in minutes): 20 Hospital Course - Lab Results Lab Results: Most Recent Lab Values WBC 15.7 K/uL (4.8-10.8) H 11/15/17 05:40 RBC 3.88 Mil/uL (3.80-5.20) 11/15/17 05:40 Hgb 11.2 g/dL (12.0-16.0) L 11/15/17 05:40 Hct 33.3 % (34.0-47.0) L 11/15/17 05:40 MCV 85.9 fl (81.0-99.0) 11/15/17 05:40 MCH 28.8 pg (27.0-31.0) 11/15/17 05:40 MCHC 33.5 g/dL (33.0-37.0) 11/15/17 05:40 RDW 13.8 % (11.5-14.5) 11/15/17 05:40 Plt Count 293 K/uL (130-400) 11/15/17 05:40 MPV 9.3 fl (7.2-11.7) 11/15/17 05:40 Neut % (Auto) 85.1 % (50.0-75.0) H 11/15/17 05:40 Lymph % (Auto) 9.8 % (20.0-40.0) L 11/15/17 05:40 [place] % (Auto) 4.8 % (0.0-10.0) 11/15/17 05:40 Eos % (Auto) 0.0 % (0.0-4.0) 11/15/17 05:40 Baso % (Auto) 0.3 % (0.0-2.0) 11/15/17 05:40 Neut # (Auto) 13.3 K/uL (1.8-7.0) H 11/15/17 05:40 Lymph # (Auto) 1.5 K/uL (1.0-4.3) 11/15/17 05:40 [place] # (Auto) 0.8 K/uL (0.0-0.8) 11/15/17 05:40 Eos # (Auto) 0.0 K/uL (0.0-0.7) 11/15/17 05:40 Baso # (Auto) 0.0 K/uL (0.0-0.2) 11/15/17 05:40 Neutrophils % (Manual) 87 % (42-75) H 11/13/17 20:51 Band Neutrophils % 3 % (0-2) H 11/13/17 20:51 Lymphocytes % (Manual) 7 % (20-50) L 11/13/17 20:51 Monocytes % (Manual) 2 % (0-10) 11/13/17 20:51 Basophils % (Manual) 1 % (0-2) 11/13/17 20:51 Platelet Estimate Normal (NORMAL) 11/13/17 20:51 Hypochromasia (manual) Slight 11/13/17 20:51 Poikilocytosis (manual Slight 11/13/17 20:51 Anisocytosis (manual) Slight 11/13/17 20:51 Target Cells Slight 11/13/17 20:51 Ovalocytes Slight 11/13/17 20:51 PT 12.0 Seconds (9.8-13.1) 11/13/17 20:51 INR 1.1 (0.9-1.2) 11/13/17 20:51 APTT 29.0 Seconds (25.6-37.1) 11/13/17 20:51 Sodium 144 mmol/l (132-148) 11/15/17 05:40 Potassium 3.5 MMOL/L (3.6-5.0) L 11/15/17 05:40 Chloride 102 mmol/L (98-107) 11/15/17 05:40 Carbon Dioxide 27 mmol/L (22-30) 11/15/17 05:40 Anion Gap 19 (10-20) 11/15/17 05:40 BUN 6 mg/dl (7-17) L 11/15/17 05:40 Creatinine 0.6 mg/dl (0.7-1.2) L 11/15/17 05:40 Est GFR ( Amer) > 60 11/15/17 05:40 Est GFR (Non-Af Amer) > 60 11/15/17 05:40 Random Glucose 119 mg/dL (65-105) H 11/15/17 05:40 Calcium 8.7 mg/dL (8.4-10.2) 11/15/17 05:40 Total Bilirubin 0.8 mg/dl (0.2-1.3) 11/15/17 05:40 AST 90 U/L (14-36) H D 11/15/17 05:40 ALT 194 U/L (9-52) H 11/15/17 05:40 Alkaline Phosphatase 97 U/L (38-126) 11/15/17 05:40 Total Protein 7.3 G/DL (6.3-8.2) 11/15/17 05:40 Albumin 3.7 g/dL (3.5-5.0) 11/15/17 05:40 Globulin 3.6 gm/dL (2.2-3.9) 11/15/17 05:40 Albumin/Globulin Ratio 1.0 (1.0-2.1) 11/15/17 05:40 Lipase 51 U/L (23-300) 11/13/17 20:51 Urine Color Yellow (YELLOW) 11/13/17 20:47 Urine Clarity Cloudy (Clear) 11/13/17 20:47 Urine pH 6.0 (5.0-8.0) 11/13/17 20:47 Ur Specific [place] 1.014 (1.003-1.030) 11/13/17 20:47 Urine Protein 30 mg/dL (NEGATIVE) 11/13/17 20:47 Urine Glucose (UA) Neg mg/dL (Normal) 11/13/17 20:47 Urine Ketones Negative mg/dL (NEGATIVE) 11/13/17 20:47 Urine Blood Large (NEGATIVE) 11/13/17 20:47 Urine Nitrate Negative (NEGATIVE) 11/13/17 20:47 Urine Bilirubin Negative (NEGATIVE) 11/13/17 20:47 Urine Urobilinogen 0.2-1.0 mg/dL (0.2-1.0) 11/13/17 20:47 Ur Leukocyte Esterase Neg Victor Manuel/uL (Negative) 11/13/17 20:47 Urine RBC (Auto) 1826 /hpf (0-3) H 11/13/17 20:47 Urine Microscopic WBC 1 /hpf (0-5) 11/13/17 20:47 Urine Bacteria Rare (<OCC) 11/13/17 20:47 - Hospital Course Hospital Course: 42 yo F pmhx/o HTN, Asthma, Obesity, Cholelithiasis presents to ED c/o RUQ abdominal pain; MRCP s/p lap roger on 11/14/2017. Pt tolerated PO diet, abdominal pain resolved. no N /V. To f/u with pcp at [address] [place] [address] on 11/18/[address] Manzano and with Dr. Yanes in 1-2 weeks. Discharge Exam - Head Exam Head Exam: ATRAUMATIC, NORMOCEPHALIC - Eye Exam Eye Exam: EOMI - Respiratory Exam Respiratory Exam: Clear to PA & Lateral, NORMAL BREATHING PATTERN. absent: Wheezes - Cardiovascular Exam Cardiovascular Exam: REGULAR RHYTHM, +S1, +S2 - GI/Abdominal Exam GI & Abdominal Exam: Normal Bowel Sounds, Soft. absent: Tenderness - Neurological Exam Neurological exam: Alert, CN II-XII Intact, Oriented x3 - Psychiatric Exam Psychiatric exam: Normal Affect, Normal Mood Discharge Plan - Discharge Medications Prescriptions: Dicyclomine [Bentyl] 20 mg PO Q12 PRN #20 tab PRN Reason: abdominal pain Famotidine [Pepcid] 20 mg PO Q12 #14 tab Lisinopril [Prinivil] 20 mg PO DAILY #30 tablet Ondansetron ODT [Zofran ODT] 12 mg PO Q6 PRN #16 odt PRN Reason: Nausea/Vomiting - Follow Up Plan Condition: STABLE Disposition: HOME/ ROUTINE Instructions: Cholecystectomy, Laparoscopic Surgery, Cholecystitis (DC) Additional Instructions: hacer brandee con el cirujano en 1 semana Referrals: Jozef Yanes MD [Staff Provider] -
== END 2017-11-15 13:48 | disposition home or self-care (01) | DRG 494 ==
LOC: H.ER 19:02 → H.ERHOLD 22:31 → H.MEDSURG1 11-14 00:05
PROVIDERS: ADMIT Family Medicine Geriatric Medicine; ATTEND Family Medicine Geriatric Medicine
PROC: 0FT44ZZ Resection of Gallbladder, Percutaneous Endoscopic Approach (ICD-10-PCS; principal; 2017-11-14 15:00)
DX: K80.00 Calculus of gallbladder with acute cholecystitis without obstruction (principal); D72.828 Other elevated white blood cell count; I10 Essential (primary) hypertension; J45.909 Unspecified asthma, uncomplicated; E66.9 Obesity, unspecified; Z68.33 Body mass index [BMI] 33.0-33.9, adult; Z88.0 Allergy status to penicillin

== ENCOUNTER 2018-04-07 12:25 | Emergency (ER) | payer OTHER ==
[2018-04-07 12:25] VITALS: BMI 39.1
[2018-04-07 12:56] VITALS: BP 150/97; PULSE 78; RESP 18; TEMP 97.8; O2SAT 100
--- NOTE | 2018-04-07 13:36 | ED PDOC ---
Lower Extremity Pain/Injury Time Seen by Provider: 04/07/18 13:04 Chief Complaint (Nursing): Lower Extremity Problem/Injury Chief Complaint (Provider): Right knee pain History Per: Patient History/Exam Limitations: no limitations Onset/Duration Of Symptoms: Days, Persistent Current Symptoms Are (Timing): Still Present Additional History Per: Patient Additional Complaint(s): 42yo female, history of knee pain, comes to ER for evaluation of worsening right knee pain. She reports taking Advil with minimal relief of pain. Otherwise , denies any new weakness, numbness or trauma to the knee. Of note, patient has a follow up appointment at the clinic on 04/11. No other complaints. PMD: [facility] Past Medical History Reviewed: Historical Data, Nursing Documentation, Vital Signs Vital Signs: Last Vital Signs Temp 97.8 F 04/07/18 12:53 Pulse 78 04/07/18 12:53 Resp 18 04/07/18 12:53 BP 150/97 H 04/07/18 12:53 Pulse Ox 100 04/07/18 12:53 - Medical History PMH: Anemia, Asthma, HTN - Surgical History Surgical History: - Family History Family History: States: No Known Family Hx - Immunization History Hx Tetanus Toxoid Vaccination: No Hx Influenza Vaccination: No Hx Pneumococcal Vaccination: No - Home Medications Home Medications: Ambulatory Orders Medication Instructions Recorded Dicyclomine [Bentyl] 20 mg PO Q12 PRN #20 tab 11/15/17 Famotidine [Pepcid] 20 mg PO Q12 #14 tab 11/15/17 Lisinopril [Prinivil] 20 mg PO DAILY #30 tablet 11/15/17 Ondansetron ODT [Zofran ODT] 12 mg PO Q6 PRN #16 odt 11/15/17 Acetaminophen with Codeine 1 tab PO Q6H PRN #10 tab 04/07/18 [Tylenol with Codeine No. 3 300 mg-30 mg] - Allergies Allergies/Adverse Reactions: Allergies Allergy/AdvReac Type Severity Reaction Status Date / Time Penicillins Allergy RASH Verified 06/14/16 15:06 Review of Systems Musculoskeletal: Positive for: Other (right knee pain) Neurological: Negative for: Weakness, Numbness Physical Exam - Reviewed Nursing Documentation Reviewed: Yes Vital Signs Reviewed: Yes - Physical Exam Appears: Positive for: Non-toxic, No Acute Distress Head Exam: Positive for: ATRAUMATIC, NORMAL INSPECTION, NORMOCEPHALIC Skin: Positive for: Normal Color Eye Exam: Positive for: Normal appearance ENT: Positive for: Normal ENT Inspection Neck: Positive for: Supple Cardiovascular/Chest: Negative for: Bradycardia, Tachycardia Respiratory: Negative for: Accessory Muscle Use, Respiratory Distress Extremity: Positive for: Normal ROM, Tenderness (tenderness to right knee). Negative for: Pedal Edema, Calf Tenderness, Deformity, Swelling Neurologic/Psych: Positive for: Alert, Oriented. Negative for: Motor/Sensory Deficits - ECG O2 Sat by Pulse Oximetry: 100 (RA) Pulse Ox Interpretation: Normal Medical Decision Making Medical Decision Making: Impression: Right knee pain Plan: * XR * Tylenol #3 for pain XR without acute fracture or dislocation. Vishal wrap applied. Scribe Attestation: Documented by Demetria Fermin acting as a scribe for CARLA Pond. Provider Attestation: All medical record entries made by the Scribe were at my direction and personally dictated by me. I have reviewed the chart and agree that the record accurately reflects my personal performance of the history, physical exam, medical decision making, and the department course for this patient. I have also personally directed, reviewed, and agree with the discharge instructions and disposition. Disposition - Clinical Impression Clinical Impression: Knee pain - Patient ED Disposition Is Patient to be Admitted: No Counseled Patient/Family Regarding: Need For Followup, Rx Given - Disposition Referrals: LTAC[facility] [Outside] Disposition: Routine/Home Disposition Time: 14:55 Condition: STABLE Prescriptions: Acetaminophen with Codeine [Tylenol with Codeine No. 3 300 mg-30 mg] 1 tab PO Q6H PRN #10 tab PRN Reason: Pain, Severe (8-10) Instructions: Knee Pain Forms: [facility] (Kenyan) Print Language: CAPE VERDEAN
[2018-04-07] MEDS ORDERED: Acetaminophen-Codeine 300/30 mg Tab PO STA (13:42)
[2018-04-07] MEDS ORDERED: Acetaminophen-Codeine 300/30 mg Tab ONE (13:54)
--- NOTE | 2018-04-07 14:30 | RAD ---
Date of service: 04/07/2018 PROCEDURE: Right Knee Radiographs. HISTORY: knee pain, 3 weeks COMPARISON: None. FINDINGS: BONES: Normal. No fracture. JOINTS: Normal. No osteoarthritis. JOINT EFFUSION: None. OTHER FINDINGS: None. IMPRESSION: Normal radiographs of the right knee.
== END 2018-04-07 15:00 | disposition home or self-care (01) ==
LOC: H.ER 12:25
DX: M25.561 Pain in right knee (principal); J45.909 Unspecified asthma, uncomplicated; I10 Essential (primary) hypertension; Z88.0 Allergy status to penicillin